=== PATIENT | female | born 1975 | race Caucasian/White ===

== ENCOUNTER 2017-02-05 05:32 | Inpatient (IN) | payer OTHER ==
[2017-02-05] MEDS ORDERED: HALDOL ONE (06:07)
[2017-02-05] MEDS ORDERED: ATIVAN ONE (06:08)
[2017-02-05 06:15] LABS: Basophils % (Auto) 0.6 % (0.0-1.8); Eosinophils % (Auto) 0.1 % (0.0-4.3); Hematocrit 39.3 % (30.3-42.9); Hemoglobin 12.7 gm/dl (10.1-14.3); Mean Corpuscular HGB Conc 32 % (30-34); Mean Corpuscular Hemoglobin 28 pg (28-32); Mean Corpuscular Volume 85 fl (79-97); Platelet Count 274 K/mm3 (140-440); Red Blood Count 4.63 M/mm3 (3.65-5.03); Red Cell Distribution Width 15.7 % (13.2-15.2); White Blood Count 10.1 K/mm3 (4.5-11.0)
[2017-02-05] MEDS ORDERED: ATIVAN IM ONE (06:15)
[2017-02-05] MEDS ORDERED: HALDOL IM ONE (06:15)
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
[2017-02-05 06:33] LABS: BUN/Creatinine Ratio 15.83; Bilirubin,Total 0.4 mg/dL (0.1-1.2); Calcium 8.9 mg/dL (8.4-10.2); Total Protein 8.1 g/dL (6.3-8.2)
[2017-02-05 06:34] LABS: Chloride 101.2 mmol/L (98-107); Potassium 3.7 mmol/L (3.6-5.0)
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
[2017-02-05 08:21] LABS: Urine Drugs of Abuse Note Disclamer
[2017-02-05] MEDS ORDERED: NACL 0.9% 1000 ML 1,000 ML IV ONE ×3 (08:22→21:39)
[2017-02-05 08:34] LABS: Bacteria,Urine 1+ /HPF (Negative); Bilirubin,Urine NEG (Negative); Blood,Urine SM (Negative); Ketones,Urine 20 mg/dL (Negative); Leukocyte Esterase,Urine LG (Negative); Mucus,Urine 3+ /HPF; Nitrite,Urine NEG (Negative); Urobilinogen,Urine < 2.0 mg/dL (<2.0)
[2017-02-05 08:49] LABS: INR 1.05 (0.87-1.13)
[2017-02-05 08:50] LABS: Partial Thromboplastin Time 27.4 Sec. (24.2-36.6)
[2017-02-05] MEDS ORDERED: ROCEPHIN/NS 1 GM/50 ML 1 GM/50 ML BAG IV ONE (08:58)
[2017-02-05 09:00] LABS: Alanine Aminotransferase 43 units/L (7-56); Albumin 4.2 g/dL (3.9-5); Albumin/Globulin Ratio 1.1 %; Alkaline Phosphatase 72 units/L (35-129); Bilirubin,Total 0.5 mg/dL (0.1-1.2); Total Protein 8.2 g/dL (6.3-8.2)
--- NOTE | 2017-02-05 09:01 | XRay Report ---
ROUTINE CHEST, TWO VIEWS: PA and lateral views demonstrate the heart and mediastinal contour to be of normal size and shape. The lungs are clear and fully expanded and the soft tissues and bony structures are normal. IMPRESSION: Normal study.
[2017-02-05 09:29] LABS: Bilirubin,Direct < 0.2 mg/dL (0-0.2)
[2017-02-05] MEDS ORDERED: ATIVAN IM PRN (12:15)
[2017-02-05] MEDS ORDERED: NACL 0.9% 1000 ML 2,000 ML IV ONE (12:15)
[2017-02-05] MEDS: MACROBID PO SCH ×2 (16:24→22:03)
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
[2017-02-06] MEDS: MACROBID PO SCH ×2 (10:35→23:26)
[2017-02-07] MEDS: MACROBID PO SCH ×2 (10:17→22:07)
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
--- NOTE | 2017-02-07 15:21 | Event Note ---
Date: 02/07/17 Vital signs are reviewed and appreciated. Patient is pending psychiatric placement at this time. Vital Signs 02/05/17 02/05/17 02/05/17 06:27 07:36 07:55 Temperature 98.6 F 99.7 F H Pulse Rate 87 106 H 104 H Respiratory 20 20 14 Rate Blood Pressure 145/78 166/96 166/96 [Right] O2 Sat by Pulse 99 98 100 Oximetry 02/05/17 02/05/17 02/05/17 08:03 08:42 10:30 Temperature 100.1 F H 99.8 F H Pulse Rate 108 H 103 H Respiratory 18 18 Rate Blood Pressure 155/96 147/95 [Right] O2 Sat by Pulse 97 100 Oximetry 02/05/17 02/05/17 02/05/17 12:50 16:10 18:29 Temperature 98.7 F 98.1 F 98.7 F Pulse Rate 101 H 97 H 100 H Respiratory 16 16 16 Rate Blood Pressure 177/99 169/99 156/94 [Right] O2 Sat by Pulse 100 100 Oximetry 02/05/17 02/05/17 02/06/17 19:56 20:00 10:32 Temperature 98.6 F 98.5 F Pulse Rate 95 H 84 Respiratory 20 20 12 Rate Blood Pressure 155/95 162/91 [Right] O2 Sat by Pulse 100 20 L 98 Oximetry 02/06/17 02/07/17 02/07/17 11:31 08:04 09:36 Temperature 98.3 F Pulse Rate 76 Respiratory 16 16 16 Rate Blood Pressure 167/105 [Right] O2 Sat by Pulse 98 97 Oximetry
[2017-02-07] MEDS ORDERED: TYLENOL PO ONE (21:57)
[2017-02-07] MEDS ORDERED: ZOFRAN IV PRN (23:44)
[2017-02-07] MEDS ORDERED: MILK OF MAGNESIA PO PRN (23:44)
[2017-02-07] MEDS ORDERED: PERCOCET 5/325 PO PRN (23:44)
[2017-02-07] MEDS ORDERED: DULCOLAX PR PRN (23:44)
[2017-02-07] MEDS ORDERED: NACL 0.9% 1000 ML 1,000 ML IV SCH (23:45)
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
[2017-02-08] MEDS: APRESOLINE IV PRN ×3 (02:01→05:02)
[2017-02-08] MEDS ORDERED: APRESOLINE IV ONE (04:26)
[2017-02-08] MEDS ORDERED: NITRO-BID 2% TP ONE (04:30)
[2017-02-08] MEDS: TYLENOL PO PRN ×3 (07:04→14:01)
[2017-02-08 07:15] LABS: Basophils % (Auto) 1.2 % (0.0-1.8); Eosinophils % (Auto) 3.2 % (0.0-4.3); Hematocrit 39.6 % (30.3-42.9); Hemoglobin 12.7 gm/dl (10.1-14.3); Mean Corpuscular HGB Conc 32 % (30-34); Mean Corpuscular Hemoglobin 27 pg (28-32); Mean Corpuscular Volume 85 fl (79-97); Platelet Count 205 K/mm3 (140-440); Red Blood Count 4.65 M/mm3 (3.65-5.03); Red Cell Distribution Width 15.6 % (13.2-15.2); White Blood Count 4.1 K/mm3 (4.5-11.0)
[2017-02-08 07:18] LABS: Anion Gap 17 mmol/L; Blood Urea Nitrogen 7 mg/dL (7-17); Carbon Dioxide 26 mmol/L (22-30); Chloride 103.1 mmol/L (98-107); Glucose 93 mg/dL (65-100); Potassium 3.3 mmol/L (3.6-5.0); Sodium 143 mmol/L (137-145)
--- NOTE | 2017-02-08 09:02 | Admit Criteria Form ---
Admission Criteria Documentation: NEUROLOGY GRG Clinical Indications for Admission to Inpatient Care (Place ' X' for any and all applicable criteria): Hospital admission is needed for appropriate care of the patient because of ANY ONE of the following: [ ]I. New-onset or worsening altered mental status remaining after emergency or observation level care (as appropriate) (9)(10)(11) [ ]II. Severe [employer] infections or inflammatory conditions, including ANY ONE of the following(1)(2)(3): [ ]a) Intracranial abscess [ ]b) Spinal abscess or myelitis [ ]c) Tuberculous or other nonbacterial, nonviral [employer] infection(8) [ ]III. Encephalitis(1)(2)(3) [ ]IV. Status epilepticus or repetitive seizures not controlled with emergent treatment [A] (7)(8) [ ]V. Transient alteration in consciousness with high-risk etiology; examples include (12)(13): [ ]a) Cardiovascular source [ ]b) Cataplexy [ ]. Cerebral aneurysm requiring ANY ONE of the following(14): [ ]a) IV antihypertensives or vasoactive agents [ ]b) Sedation and analgesia for suspected leak [ ]c) Need for external ventricular drainage and cerebral perfusion pressure monitoring [ ]d) Emergent evaluation to determine need for surgical clipping or endovascular coiling by interventional radiology. If surgery is required ( Also use Craniotomy, Supratentorial, for Surgery of Bleeding Intracranial Aneurysm (for bleeding aneurysm) or Craniotomy, Supratentorial (for nonbleeding aneurysm) as appropriate. [ ]VII. Altered mental status that is severe or persistent(16) [ ]VIII New-onset severe neurologic findings requiring inpatient care; examples include: [ ]a) Papilledema [ ]b) Cerebral edema [ ]c) Mass effect on imaging [ ]IX. New-onset severe neurologic symptom requiring inpatient care indicated by ANY ONE of the following: [ ]a) Aphasia(15) [ ]b) Weakness (grade 3 or less) [ ]c) Paralysis (eg, hemiplegia) [ ]d) Spasticity(16) [ ]e) Ataxia(17) [ ]f) Amnesia(18) [ ]g) Involuntary movements(19) [ ]h) Vertigo [ ]i) Other severe neurologic symptom not treatable at alternative level of care (eg, observation care) [ ]X. Guillain-[place] syndrome(20) [ ]XI. Myasthenia gravis crisis or inpatient monitoring need as indicated by ANY ONE of the following(21): [ ]a) Inadequate airway protection [ ]b) Respiratory insufficiency requiring intubation or inpatient. monitoring [ ]c) Progressive dysphagia with failure to thrive [ ]d) Intensive treatment (eg, course of plasmapheresis) with inadequate outpatient situation to monitor patients status [ ]XII. Multiple sclerosis or other acute demyelinating disease requiring inpatient care as indicated by ANY ONE of the following (22)(23): [ ]a) Acute severe deterioration requiring inpatient treatment (eg, IV steroids, plasmapheresis, close observation) [ ]b) Acute complication requiring inpatient care (eg, sepsis, severe decubitus, aspiration) [ ]XIII. Intracranial hypertension (eg, pseudotumor cerebri) requiring inpatient care (eg, acute visual loss, inadequate oral intake) (24) [ ]XIV.Parkinson disease requiring inpatient care (Also use Optimal Recovery Care Criteria or General Recovery Criteria as appropriate) indicated by ANY ONE of the following(25): [ ]a) Infection (eg, aspiration pneumonia) not treatable at alternative level of care [ ]b) Volume depletion not responsive to emergency and observation care treatment (as appropriate) [ ]c) Life-threatening agitation or psychotic behavior not treatable on emergency, observation care, or alternative level (eg, residential) basis [ ]d) Severe medication withdrawal effects (eg, freezing, neuroleptic malignant syndrome) not responsive to emergency and observation care treatment (as appropriate) [ ]e) Other severe manifestation not treatable at alternative level of care [ ]XV.Amyotrophic lateral sclerosis with inpatient care needs as indicated by ANY ONE of the following(26): [ ]a) Acute complications requiring inpatient care (Use Optimal Recovery Care Criteria or General Recovery Criteria as appropriate); examples include: [ ]i) Aspiration pneumonia [ ]ii) Sepsis [ ]b) Dehydration or hypovolemia (not responsive to emergency and observation care treatment as appropriate) AND artificial support desired [ ]c) Inadequate airway protection AND artificial support desired [ ]d) Severe ventilatory insufficiency AND artificial support desired [ ]XVI.Severe myopathy, neuropathy, or other neuromuscular disease as indicated by ANY ONE of the following: [ ]a) New-onset severe diffuse weakness (eg, strength 3/5 or less) [ ]b) Severe dysphagia [ ]c) Dyspnea at rest or with minimal exertion (new) [ ]d) Inadequate airway protection [ ]e) Inadequate ventilation as indicated by ANY ONE of the following : [ ]i) Partial pressure of carbon dioxide greater than 44 mm Hg (5.9 kPa) (new) [ ]ii) Reduced peak expiratory flow rate (new) [ ]iii) Vital capacity less than 50% of predicted ( less than 15 mL/kg) [ ]iv) Peak inspiratory force less negative than -30 cm H20 (-2942 Pa) [ ]XVII.Complications of congenital or degenerative disease (eg, infection, seizures, dehydration, injury) not responsive to emergency and observation care treatment (as appropriate ) [C](16)(29)(30) [X ]XVIII.Suspected or confirmed nerve or muscle toxic injury, including ANY ONE of the following: [X ]a) Rhabdomyolysis(31) [ ]b) Botulism(32) [ ]c) Other severe toxin-induced sign or symptom [ ]XIX. Neurologic trauma requiring inpatient treatment (medical) indicated by ANY ONE of the following(33)(34): [ ]a) Vital signs or neurologic signs more frequently than every 4 hours [ ]b) Hyperosmolar therapy [ ]c) Respiratory monitoring [ ]d) Intracranial pressure monitoring and treatment [ ]e) Stabilization and immobilization device placement (eg, braces, body jacket) [ ]f) Intubation & mechanical ventilation for airway protection or therapeutic hyperventilation [ ]g) Other treatment or monitoring needed that requires inpatient level of care [ ]XX.Complications of neurologic devices (eg, ventricular shunt, neurostimulator) requiring ANY ONE of the following(35)(36): [ ]a) IV antibiotics with monitoring while awaiting culture results [ ]b) Monitoring for hydrocephalus [ ]XXI Vasculitis with ANY ONE of the following(4)(5): [ ]a) Altered mental status [ ]b) Psychosis [ ]c) Seizures [ ]XXII. Neurology condition and ALL of the following: [ ]a) Symptom or finding for which emergency and observation care have failed or are not considered appropriate (Use General Criteria: Observation Care as appropriate) [ ]b) Presence of ANY ONE of the following: [ ]i) A General Admission Criteria [ ]ii A Pediatric General Admission Criteria The original [facility] content created by [facility] has been revised. The portions of the content which have been revised are identified through the use of italic text or in bold, and [facility] has neither reviewed nor approved the modified material. All other unmodified content is copyright [facility] Please see references footnoted in the original [facility] edition 2016 Admission Criteria Met: Yes
[2017-02-08] MEDS: MACROBID PO SCH ×2 (09:08→21:46)
[2017-02-08] MEDS: LOVENOX SUB-Q SCH (09:09)
--- NOTE | 2017-02-08 16:12 | Progress Note ---
Assessment and Plan Assessment and plan: --Rhabdomyolysis With preserved renal function, continue IV hydration, closely monitor input- output CK levels trending down --Drug induced psychosis, secondary to amphetamine use Continue supportive care, patient was advised to follow up with behavioral health upon discharge Psych has evaluated the patient and discontinue 1013 status, can be discharged home when medically stable --Hypokalemia Replace per protocol and monitor levels --Hypertension Moderate control, when necessary hydralazine --Urinary tract infection Continue empiric antibiotics, follow cultures and supportive care --DVT prophylaxis with Lovenox Closely monitor the patient and adjust the management as needed Monitor CK levels, possible discharge in 1-2 days if stable History Interval history: Patient seen and evaluated medical records reviewed No new events reported by the nursing staff patient feels slightly better Alert awake oriented 3 not in acute distress Hospitalist Physical - Constitutional Vitals: Temp Pulse Resp BP Pulse Ox 98.2 F 70 20 169/91 97 02/08/17 15:59 02/08/17 15:59 02/08/17 15:59 02/08/17 15:59 02/08/17 15:59 General appearance: Present: no acute distress, well-nourished - EENT Eyes: Present: PERRL, EOM intact - Neck Neck: Present: supple, normal ROM - Respiratory Respiratory effort: normal Respiratory: negative: rales, rhonchi, wheezing - Cardiovascular Rhythm: regular Heart Sounds: Present: S1 & S2 - Extremities Extremities: no ischemia, pulses intact, pulses symmetrical Peripheral Pulses: within normal limits - Abdominal General gastrointestinal: soft, non-tender, non-distended, normal bowel sounds - Integumentary Integumentary: Present: clear, warm - Psychiatric Psychiatric: appropriate mood/affect, cooperative - Neurologic Neurologic: CNII-XII intact, moves all extremities Results - Labs CBC & Chem 7: 02/08/17 05:59 02/09/17 05:22 Labs: Laboratory Last Values WBC 4.1 K/mm3 (4.5-11.0) L 02/08/17 05:59 RBC 4.65 M/mm3 (3.65-5.03) 02/08/17 05:59 Hgb 12.7 gm/dl (10.1-14.3) 02/08/17 05:59 Hct 39.6 % (30.3-42.9) 02/08/17 05:59 MCV 85 fl (79-97) 02/08/17 05:59 MCH 27 pg (28-32) L 02/08/17 05:59 MCHC 32 % (30-34) 02/08/17 05:59 RDW 15.6 % (13.2-15.2) H 02/08/17 05:59 Plt Count 205 K/mm3 (140-440) 02/08/17 05:59 Lymph % (Auto) 30.6 % (13.4-35.0) 02/08/17 05:59 [place] % (Auto) 10.9 % (0.0-7.3) H 02/08/17 05:59 Eos % (Auto) 3.2 % (0.0-4.3) 02/08/17 05:59 Baso % (Auto) 1.2 % (0.0-1.8) 02/08/17 05:59 Lymph # 1.2 K/mm3 (1.2-5.4) 02/08/17 05:59 [place] # 0.4 K/mm3 (0.0-0.8) 02/08/17 05:59 Eos # 0.1 K/mm3 (0.0-0.4) 02/08/17 05:59 Baso # 0.0 K/mm3 (0.0-0.1) 02/08/17 05:59 Seg Neutrophils % 54.1 % (40.0-70.0) 02/08/17 05:59 Seg Neutrophils # 2.2 K/mm3 (1.8-7.7) 02/08/17 05:59 PT 13.6 Sec. (12.2-14.9) 02/05/17 08:22 INR 1.05 (0.87-1.13) 02/05/17 08:22 APTT 27.4 Sec. (24.2-36.6) 02/05/17 08:22 Sodium 143 mmol/L (137-145) 02/08/17 05:59 Potassium 3.3 mmol/L (3.6-5.0) L 02/08/17 05:59 Chloride 103.1 mmol/L (98-107) 02/08/17 05:59 Carbon Dioxide 26 mmol/L (22-30) 02/08/17 05:59 Anion Gap 17 mmol/L 02/08/17 05:59 BUN 7 mg/dL (7-17) 02/08/17 05:59 Creatinine 0.5 mg/dL (0.7-1.2) L D 02/08/17 05:59 Estimated GFR > 60 ml/min 02/08/17 05:59 BUN/Creatinine Ratio 14.00 % 02/08/17 05:59 Glucose 93 mg/dL (65-100) 02/08/17 05:59 Calcium 9.0 mg/dL (8.4-10.2) 02/08/17 05:59 Total Bilirubin 0.5 mg/dL (0.1-1.2) 02/05/17 08:22 Direct Bilirubin < 0.2 mg/dL (0-0.2) 02/05/17 08:22 AST 79 units/L (5-40) H 02/05/17 08:22 ALT 43 units/L (7-56) 02/05/17 08:22 Alkaline Phosphatase 72 units/L (35-129) 02/05/17 08:22 Ammonia 43.0 umol/L (25-60) 02/05/17 08:22 Total Creatine Kinase 494 units/L (30-135) H 02/08/17 05:59 Total Protein 8.2 g/dL (6.3-8.2) 02/05/17 08:22 Albumin 4.2 g/dL (3.9-5) 02/05/17 08:22 Albumin/Globulin Ratio 1.1 % 02/05/17 08:22 HCG, Qual Negative (Negative) 02/05/17 05:52 Urine Color Yellow (Yellow) 02/05/17 07:53 Urine Turbidity Cloudy (Clear) 02/05/17 07:53 Urine pH 5.0 (5.0-7.0) 02/05/17 07:53 Ur Specific [place] 1.024 (1.003-1.030) 02/05/17 07:53 Urine Protein 100 mg/dl mg/dL (Negative) 02/05/17 07:53 Urine Glucose (UA) Neg mg/dL (Negative) 02/05/17 07:53 Urine Ketones 20 mg/dL (Negative) 02/05/17 07:53 Urine Blood Sm (Negative) 02/05/17 07:53 Urine Nitrite Neg (Negative) 02/05/17 07:53 Urine Bilirubin Neg (Negative) 02/05/17 07:53 Urine Urobilinogen < 2.0 mg/dL (<2.0) 02/05/17 07:53 Ur Leukocyte Esterase Lg (Negative) 02/05/17 07:53 Urine WBC (Auto) 123.0 /HPF (0.0-6.0) H 02/05/17 07:53 Urine RBC (Auto) 5.0 /HPF (0.0-6.0) 02/05/17 07:53 U Epithel Cells (Auto) 3.0 /HPF (0-13.0) 02/05/17 07:53 Urine Bacteria (Auto) 1+ /HPF (Negative) 02/05/17 07:53 Urine Mucus 3+ /HPF 02/05/17 07:53 Salicylates < 0.3 mg/dL (2.8-20.0) L 02/05/17 05:52 Urine Opiates Screen Presumptive negative 02/05/17 07:53 Urine Methadone Screen Presumptive negative 02/05/17 07:53 Acetaminophen < 15.0 ug/mL (10.0-30.0) 02/05/17 05:52 Ur Barbiturates Screen Presumptive negative 02/05/17 07:53 Ur Phencyclidine Scrn Presumptive negative 02/05/17 07:53 Ur Amphetamines Screen Presumptive positive 02/05/17 07:53 U Benzodiazepines Scrn Presumptive negative 02/05/17 07:53 Urine Cocaine Screen Presumptive negative 02/05/17 07:53 U Marijuana (THC) Screen Presumptive negative 02/05/17 07:53 Drugs of Abuse Note Disclamer 02/05/17 07:53 Plasma/Serum Alcohol < 0.01 gm% (0-0.07) 02/05/17 05:52 Blood Type A POSITIVE 02/05/17 05:52 Antibody Screen Negative 02/05/17 05:52
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
[2017-02-08] MEDS ORDERED: LASIX IV ONE (17:00)
[2017-02-08] MEDS: APRESOLINE PO SCH (21:46)
[2017-02-09] MEDS: APRESOLINE IV PRN (04:47)
[2017-02-09 06:00] LABS: Anion Gap 16 mmol/L; BUN/Creatinine Ratio 11.25; Blood Urea Nitrogen 9 mg/dL (7-17); Calcium 8.8 mg/dL (8.4-10.2); Carbon Dioxide 26 mmol/L (22-30); Chloride 101.6 mmol/L (98-107); Glucose 104 mg/dL (65-100); Potassium 3.4 mmol/L (3.6-5.0); Sodium 140 mmol/L (137-145)
[2017-02-09] MEDS: APRESOLINE PO SCH (07:03)
[2017-02-09] MEDS ORDERED: APRESOLINE PO SCH ×2 (08:27→14:00)
[2017-02-09] MEDS: LOVENOX SUB-Q SCH (09:25)
[2017-02-09] MEDS: MACROBID PO SCH (09:26)
[2017-02-09] MEDS ORDERED: K-DUR PO ONE (09:30)
[2017-02-09] MEDS ORDERED: APRESOLINE IV ONE (09:30)
[2017-02-09] MEDS ORDERED: LASIX IV SCH (10:00)
--- NOTE | 2017-02-09 11:40 | Discharge Summary ---
Providers - Providers Date of Admission: 02/07/17 23:44 Date of discharge: 02/09/17 Attending physician: RAMO CANDELARIA Primary care physician: BUILDING MOVER Hospitalization Condition: Stable Disposition: DISCHARGED TO HOME OR SELFCARE Exam - Constitutional Vitals: Temp Pulse Resp BP Pulse Ox 98.2 F 77 18 175/92 96 02/09/17 08:00 02/09/17 08:00 02/09/17 08:00 02/09/17 08:00 02/09/17 08:00 Plan Activity: no restrictions Diet: regular Additional Instructions: f/u Behavioral health 1 week. advised to quit taking recreational drug use Follow up with: PRIMARY CARE, [Primary Care Provider] - 3-5 Days Prescriptions: hydrALAZINE [Apresoline TAB] 25 mg PO Q8HR #90 tablet Nitrofurantoin [place]/M-Cryst [Macrobid CAP] 100 mg PO BID #14 capsule
[2017-02-09 11:46] VITALS: BP 159/96
== END 2017-02-09 13:25 | disposition home or self-care (01) | DRG 897 ==
LOC: EEVIPCON 05:32 → ED 05:32 → 3A 02-07 23:44
PROVIDERS: ADMIT Internal Medicine; ATTEND Internal Medicine
DX: F15.159 Other stimulant abuse with stimulant-induced psychotic disorder, unspecified (principal); M62.82 Rhabdomyolysis; N39.0 Urinary tract infection, site not specified; E87.6 Hypokalemia; I10 Essential (primary) hypertension; Z82.49 Family history of ischemic heart disease and other diseases of the circulatory system; V89.2XXA Person injured in unspecified motor-vehicle accident, traffic, initial encounter
CPT/HCPCS: 36415; 70450; 71020; 72125; 80048; 80053; 80074; 80307; 80320; 81001; 82140; 82550; 84703; 85025; 85610; 85730; 86850; 86900; 86901; 87086; 93005; 93010; 96361; 96365; 96372; G0480; J0360; J0696; J1630; J1650; J1940; J2060; J7030